=== PATIENT | female | born 1995 | race African-American/Black ===

== ENCOUNTER 2025-03-16 12:03 | Emergency (ER) | payer MEDICAID ==
[~2025-03-16] VITALS: Ht 170.2 cm; Wt 82.0 kg
[2025-03-16 12:10] VITALS: O2SAT 100
[2025-03-16 12:51] LABS: BASOPHILS % 0.4 % (0.0-2.0); EOSINOPHILS % 4.2 % (0.0-5.0); HEMATOCRIT. 32.7 % (36.0-48.0); HEMOGLOBIN. 10.8 g/dL (12.0-16.0); LYMPHOCYTES % 24.3 % (20.0-50.0); MEAN CORPUSCULAR HEMOGLOBIN 26.9 pg (28.0-32.0); MEAN CORPUSCULAR HGB CONC 33.1 g/dL (31.0-37.0); MEAN CORPUSCULAR VOLUME 81.1 fL (81.0-99.0); MEAN PLATELET VOLUME 7.5 fl (7.4-10.4); NEUTROPHILS % 61.1 % (40.0-76.0); PLATELET 261 x1000/uL (130-400); RED BLOOD CELL COUNT 4.03 mill/uL (4.2-5.4); RED CELL DISTRIBUTION WIDTH 14.7 % (11.6-14.6); WHITE BLOOD COUNT 4.4 x1000/uL (4.5-11.0)
[2025-03-16 12:56] LABS: CHLORIDE 109 mEq/L (98-107); POTASSIUM 3.7 mEq/L (3.5-5.1); SODIUM 140 mEq/L (136-145)
[2025-03-16 12:57] LABS: CALCIUM 9.4 mg/dL (8.7-10.4); CARBON DIOXIDE 23 mEq/L (21-32)
[2025-03-16 13:02] LABS: CREATININE 0.8 mg/dL (0.6-1.0); GLUCOSE 107 mg/dL (70-105); UREA NITROGEN BLOOD 8 mg/dL (9-23)
[2025-03-16 13:15] LABS: B-HCG QUANTITATIVE 2941 mIU/mL (<6)
[2025-03-16 14:03] LABS: CLARITY URINE CLEAR (CLEAR); COLOR URINE YELLOW (YELLOW); GLUCOSE URINE NEGATIVE (NEGATIVE); KETONES URINE 1+ (NEGATIVE); LEUKOCYTE ESTERASE URINE TRACE (NEGATIVE); NITRITE URINE NEGATIVE (NEGATIVE); OCCULT BLOOD URINE NEGATIVE (NEGATIVE); PH URINE 6.5 (4.5-8.0); PROTEIN URINE NEGATIVE (NEGATIVE); SPECIFIC GRAVITY URINE 1.015 (1.005-1.030)
[2025-03-16 14:22] LABS: AMORPHOUS SEDIMENT URINE 1+ /lpf; BACTERIA URINE 1+; RBC URINE NONE SEEN /hpf (0-2); SQUAMOUS EPITHELIAL CELL URINE FEW /lpf (RARE/1+); WBC URINE 0-2 /hpf (0-2)
[2025-03-16 14:23] LABS: MUCUS URINE 1+ /lpf (< = 2+)
[2025-03-16 15:35] VITALS: BP 120/69; PULSE 77; RESP 21; TEMP 36.9; O2SAT 100
[2025-03-16] MEDS ORDERED: CEPH250C2 MT (15:35)
[2025-03-16] MEDS ORDERED: PREN-140 PO (15:36)
== END 2025-03-16 16:05 | disposition home or self-care (01) ==
LOC: ER 12:03
DX: O23.41 Unspecified infection of urinary tract in pregnancy, first trimester (principal); O99.011 Anemia complicating pregnancy, first trimester; Z3A.01 Less than 8 weeks gestation of pregnancy; Z79.899 Other long term (current) drug therapy
CPT/HCPCS: 36415; 76801; 80048; 81003; 81025; 84702; 85025; 86850; 86900; 99284

== ENCOUNTER 2025-03-28 18:29 | Emergency (ER) | payer MEDICAID ==
[~2025-03-28] VITALS: Ht 170.2 cm; Wt 90.0 kg
[~2025-03-28 18:29] MED LIST: CEPH250C2 MT; PREN-140 PO
[2025-03-28 18:35] VITALS: O2SAT 100
[2025-03-28 19:36] LABS: CLARITY URINE CLEAR (CLEAR); COLOR URINE ORANGE (YELLOW); GLUCOSE URINE NEGATIVE (NEGATIVE); KETONES URINE NEGATIVE (NEGATIVE); LEUKOCYTE ESTERASE URINE NEGATIVE (NEGATIVE); NITRITE URINE NEGATIVE (NEGATIVE); OCCULT BLOOD URINE 3+ (NEGATIVE); PH URINE 6.5 (4.5-8.0); PROTEIN URINE 1+ (NEGATIVE); SPECIFIC GRAVITY URINE 1.012 (1.005-1.030); UROBILINOGEN URINE 0.2 E.U./dL (0.2-1.0)
[2025-03-28 20:16] LABS: BACTERIA URINE NONE SEEN; SQUAMOUS EPITHELIAL CELL URINE FEW /lpf (RARE/1+); WBC URINE 0-2 /hpf (0-2)
[2025-03-28 20:29] LABS: MEAN PLATELET VOLUME 7.7 fl (7.4-10.4)
[2025-03-28 20:31] LABS: BASOPHILS % 0.7 % (0.0-2.0); EOSINOPHILS % 4.5 % (0.0-5.0); HEMATOCRIT. 33.1 % (36.0-48.0); HEMOGLOBIN. 11.0 g/dL (12.0-16.0); LYMPHOCYTES % 32.0 % (20.0-50.0); MONOCYTES % 12.3 % (2.0-8.0); NEUTROPHILS % 50.5 % (40.0-76.0); PLATELET 297 x1000/uL (130-400); RED BLOOD CELL COUNT 4.03 mill/uL (4.2-5.4); RED CELL DISTRIBUTION WIDTH 14.7 % (11.6-14.6)
[2025-03-28 20:45] LABS: CREATININE 0.8 mg/dL (0.6-1.0)
[2025-03-28 20:46] LABS: HCG SCREEN POSITIVE; UREA NITROGEN BLOOD 8 mg/dL (9-23)
[2025-03-28 21:25] LABS: B-HCG QUANTITATIVE 4133 mIU/mL (<6)
[2025-03-28 22:03] VITALS: BP 115/65; PULSE 66; RESP 16; TEMP 36.9; O2SAT 100
== END 2025-03-28 22:06 | disposition home or self-care (01) ==
LOC: ER 18:29
DX: O20.9 Hemorrhage in early pregnancy, unspecified (principal); Z3A.01 Less than 8 weeks gestation of pregnancy; Z79.899 Other long term (current) drug therapy
CPT/HCPCS: 36415; 76801; 80048; 81003; 84702; 84703; 85025; 86850; 86900; 99284